=== PATIENT | female | born 1990 | race Caucasian/White ===

== ENCOUNTER 2016-11-17 19:44 | Emergency (ER) | payer OTHER, BC ==
[2016-11-17 19:56] VITALS: TEMP 98.4; O2SAT 99
[2016-11-17] MEDS ORDERED: Sodium Chloride 0.9% 1,000 ML IV ONE (20:03)
[2016-11-17] MEDS ORDERED: Iohexol 240 (50 ml) PO ONE (20:06)
--- NOTE | 2016-11-17 20:07 | C.PDOC ---
History Of Present Illness 26 year old female who presents to the ER with a complaint of LUQ and epigastric pain that began earlier today, associated with nausea and vomiting. Denies dysuria or hematuria. Chief Complaint (Nursing): Chest Pain History Per: Patient History/Exam Limitations: no limitations Onset/Duration Of Symptoms: Hrs Current Symptoms Are (Timing): Still Present Associated Symptoms: Nausea. denies: Dyspnea, Diaphoresis, Syncope Modifying Factors: None Exacerbating Factors: None Alleviating Factors: None Recent travel outside of the [place]: No Past Medical History Reviewed: Historical Data, Nursing Documentation, Vital Signs Vital Signs: Last Vital Signs Temp 98.4 F 11/17/16 19:52 Pulse 78 11/17/16 23:51 Resp 18 11/17/16 23:51 BP 102/78 11/17/16 23:51 Pulse Ox 99 11/17/16 23:51 - Medical History PMH: No Chronic Diseases Surgical History: No Surg Hx Family History: States: Unknown Family Hx - Social History Hx Alcohol Use: Yes Hx Substance Use: No - Immunization History Hx Tetanus Toxoid Vaccination: No Hx Influenza Vaccination: No Hx Pneumococcal Vaccination: No Review Of Systems Constitutional: Negative for: Fever, Chills Gastrointestinal: Positive for: Nausea, Vomiting, Abdominal Pain Genitourinary: Negative for: Dysuria, Hematuria Physical Exam - Physical Exam Appears: Non-toxic, Other (Moderate distress) Skin: Normal Color, Warm, Dry Head: Atraumatic, Normacephalic Oral Mucosa: Moist Chest: Symmetrical, No Tenderness Cardiovascular: Rhythm Regular, No Murmur Respiratory: Normal Breath Sounds, No Rales, No Rhonchi, No Wheezing Gastrointestinal/Abdominal: Soft, Tenderness (Epigastric, LUQ, LLQ), No Guarding , No Rebound Neurological/Psych: Oriented x3, Normal Speech, Normal Cognition ED Course And Treatment - Laboratory Results Result Diagrams: 11/17/16 20:14 11/17/16 20:14 ECG: Interpreted By Me, Viewed By Me ECG Rhythm: Sinus Rhythm ECG Interpretation: Normal, No Acute Changes Interpretation Of ECG: NSR with sinus arrythmia and short AK interval, normal tracings Rate From EC O2 Sat by Pulse Oximetry: 99 Pulse Ox Interpretation: Normal Progress Note: CT abd/pel, blood work, CXR, and urinalysis ordered. Bentyl, pepcid, toradol, zofran, and IV fluids administered. Disposition - Disposition Referrals: Vasiliy Hardy MD [Medical Doctor] - Disposition: HOME/ ROUTINE Disposition Time: 00:11 Condition: STABLE Prescriptions: Dicyclomine [Dicyclomine HCl] 10 mg PO QID #20 cap Famotidine [Pepcid] 20 mg PO BID #30 tab Instructions: Abdominal Pain (ED), Gastritis (DC) Forms: [employer] ([place]) - POA Present On Arrival: None - Clinical Impression Clinical Impression: Abdominal pain, Gastritis - Scribe Statement The provider has reviewed the documentation as recorded by the Scribe Brandon Taylor All medical record entries made by the Yoliibe were at my direction and personally dictated by me. I have reviewed the chart and agree that the record accurately reflects my personal performance of the history, physical exam, medical decision making, and the department course for this patient. I have also personally directed, reviewed, and agree with the discharge instructions and disposition.
[2016-11-17] MEDS ORDERED: Iohexol 240 (50 ml) ONE (20:19)
[2016-11-17 20:24] LABS: BASO % 0.3 % (0.0-2.0); EOS % 0.4 % (0.0-4.0); HEMATOCRIT 38.3 % (34.0-47.0); LYMPH # 1.6 K/uL (1.0-4.3); LYMPH % 15.3 % (20.0-40.0); MEAN CELL VOLUME 83.1 fL (81.0-99.0); MEAN CORPUSCULAR HEMOGLOBIN 27.4 pg (27.0-31.0); MEAN PLATELET VOLUME 8.2 fL (7.2-11.7); MONO # 0.5 K/uL (0.0-0.8); MONO % 4.9 % (0.0-10.0); RED CELL DISTRIBUTION WIDTH 13.5 % (11.5-14.5); WHITE BLOOD COUNT 10.3 K/uL (4.8-10.8)
[2016-11-17 20:26] LABS: CHLORIDE 105 mmol/L (98-107)
[2016-11-17 20:27] LABS: POTASSIUM 3.5 mmol/L (3.6-5.2); SODIUM 140 mmol/L (132-148)
[2016-11-17 20:29] LABS: ALB/GLOB RATIO 1.3 (1.0-2.1); ALKALINE PHOSPHATASE 65 U/L (38-126); ALT/SGPT 26 U/L (9-52); AST/SGOT 21 U/L (14-36); BILIRUBIN,TOTAL 0.4 mg/dL (0.2-1.3); BLOOD UREA NITROGEN 12 mg/dL (7-17); CALCIUM 9.4 mg/dl (8.6-10.4); CARBON DIOXIDE 20 mmol/L (22-30); GFR AFRICAN-AMERICAN > 60; GLUCOSE,RANDOM 94 mg/dL (65-105); TOTAL PROTEIN 7.9 g/dL (6.3-8.3)
[2016-11-17] MEDS ORDERED: Iodixanol 320 MG/ML 100 ML BOTTLE IV ONE (20:35)
[2016-11-17 22:02] LABS: RBC URINE 1 /hpf (0-3); URINE BILIRUBIN NEGATIVE (NEGATIVE); URINE BLOOD NEGATIVE (NEGATIVE); URINE COLOR Yellow (YELLOW); URINE GLUCOSE (UA) NORMAL (Normal); URINE KETONE 1+ mg/dL (NEGATIVE); URINE LEUKOCYTE ESTERASE NEG Leu/uL (Negative); URINE PROTEIN NEGATIVE (NEGATIVE); URINE UROBILINOGEN NORMAL mg/dL (0.2-1.0); WBC URINE 3 /hpf (0-5)
--- NOTE | 2016-11-17 23:44 | CT ---
EXAM: CT Abdomen and Pelvis With Intravenous Contrast CLINICAL HISTORY: 26 years old, female; Pain; Abdominal pain; Localized; Left lower quadrant (llq); Additional info: Abd pain-luq and llq TECHNIQUE: Axial computed tomography images of the abdomen and pelvis with intravenous contrast. All CT scans at this facility use one or more dose reduction techniques, viz.: automated exposure control; ma/kV adjustment per patient size (including targeted exams where dose is matched to indication; i.e. head); or iterative reconstruction technique. Coronal and sagittal reformatted images were created and reviewed. CONTRAST: 100 mL of visipaque 320 administered intravenously. COMPARISON: No relevant prior studies available. FINDINGS: Lower thorax: There is minimal bibasilar atelectasis. ABDOMEN: Liver: There are no focal liver lesions present. Gallbladder and bile ducts: The gallbladder is contracted but otherwise normal. No calcified stones. No ductal dilation. Pancreas: The pancreas is normal. No ductal dilation. Spleen: The spleen is normal. Adrenals: The adrenal glands are normal. Kidneys and ureters: Left kidney demonstrates a punctate nonobstructing calculus at the upper pole. There is no evidence of hydronephrosis. Stomach and bowel: Question mild wall thickening at the splenic flexure of the colon, versus underdistention. These correlate clinically and if indicated further evaluation can be obtained. Stomach is predominantly decompressed and grossly unremarkable. There is no evidence of intestinal obstruction. Appendix: No findings to suggest acute appendicitis. PELVIS: Bladder: Bladder is predominantly decompressed and grossly unremarkable. Reproductive: 2.6 CM tubular/cystic change at the right adnexa. Differential diagnostic considerations include but are not limited to complex cystic or multiloculated cystic lesion , hydrosalpinx. If indicated, this can be further evaluated with pelvic sonogram. The uterus is normal. ABDOMEN and PELVIS: Intraperitoneal space: There is no evidence of free intraperitoneal fluid. There is no free intraperitoneal air. Bones/joints: No acute fracture. No dislocation. Soft tissues: Unremarkable. Vasculature: The aorta is normal. No abdominal aortic aneurysm. Lymph nodes: There is no evidence of lymphadenopathy. IMPRESSION: 1. 2.6 CM tubular/cystic change at the right adnexa. Differential diagnostic considerations include but are not limited to complex cystic or multiloculated cystic lesion , hydrosalpinx. If indicated, this can be further evaluated with pelvic sonogram. 2. Question mild wall thickening at the splenic flexure of the colon, versus underdistention. These correlate clinically and if indicated further evaluation can be obtained. 3. Additional incidental and/or chronic findings as described.
[2016-11-17 23:52] VITALS: BP 102/78; PULSE 78; RESP 18
--- NOTE | 2016-11-18 10:37 | RAD ---
HISTORY: upper abd / chest pain COMPARISON: No prior. TECHNIQUE: Chest PA and lateral FINDINGS: LUNGS: No active pulmonary disease. PLEURA: No significant pleural effusion identified. No pneumothorax apparent. CARDIOVASCULAR: Normal. OSSEOUS STRUCTURES: No significant abnormalities. VISUALIZED UPPER ABDOMEN: Normal. OTHER FINDINGS: None. IMPRESSION: No active disease.
--- NOTE | 2016-11-20 13:27 | CARD ---
APPROVED REPORT EKG Measurement Heart [id number] <Conclusion> Sinus rhythm with sinus arrhythmia with short LA Otherwise normal ECG
== END 2016-11-18 00:20 | disposition home or self-care (01) ==
LOC: C.ER 19:44 → SUPCPDRO 19:44 → C.ER 11-18 00:20
DX: K29.70 Gastritis, unspecified, without bleeding (principal); R10.13 Epigastric pain
CPT/HCPCS: 71020; 74177; 80053; 81001; 83690; 84484; 84703; 85025; 96372; 96374; 96375; 99285; J0500; J1885; J2405; J7040; Q9966; Q9967